=== PATIENT | male | born 2000 | race Caucasian/White ===

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

== ENCOUNTER → 2018-01-27 | Outpatient (CLI) | payer MEDICAID | LOC: FIMAGING 10:00 | PROVIDERS: ATTEND Plastic Surgery | DX: S63.26 Dislocation of metacarpophalangeal joint of finger (principal); Z98.890 Other specified postprocedural states; M85.842 Other specified disorders of bone density and structure, left hand ==